=== PATIENT | male | born 1930 | race Caucasian/White ===

== ENCOUNTER 2017-05-20 22:29 | Emergency (ER) | payer MEDICARE ==
[2017-05-20] MEDS ORDERED: BUMEX 1 MG IV ONE (22:52)
--- NOTE | 2017-05-20 23:02 | ERPHSYRPT ---
- History of Present Illness Time Seen by Provider: 05/20/17 22:45 Source: patient Exam Limitations: clinical condition Patient Subjective Stated Complaint: swelling to arms, legs increasing since Sunday Triage Nursing Assessment: alert and oriented. states generalized swelling denies SOB/CP. noted bilateral leg swelling. bruise n oted to right lower leg and right thigh. denies injury. difficulty palpating pedal pulses due to swelling. _ Homans sign. has pacemaker. lungs clear bilatally. denies fever or cough.. + pulse x 4. Physician History: PATIENT WITH A HISTORY OF HYPERTENSION, PACEMAKER INSERTION, RECENT CARDIAC CATH, COMPLAINS OF CHRONIC BILATERAL LOWER EXTREMITY SWELLING, WHICH HAS INCREASED IN SEVERITY X 5 DAYS. DENIES DYSPNEA, CHEST PAIN, DIAPHORESIS AND PAIN IN EXTREMITIES. Method of Injury: other (DENIES INJURY OR TRAUMA) Occurred: last week Quality: constant Severity of Pain-Max: none Severity of Pain-Current: none Modifying Factors: Improves With: nothing Associated Symptoms: other (SWELLING IN LEGS) Allergies/Adverse Reactions: No Known Drug Allergies Allergy (Verified 08/07/14 13:25) Home Medications: Docusate Sodium 100 mg [Colace 100 MG] 200 mg PO DAILY 12/11/12 [History] Furosemide 40 mg [Lasix 40 MG] 80 mg PO DAILY 12/11/12 [History] Levothyroxine Sodium 50 Mcg [Synthroid 50 Mcg] 50 mcg PO DAILY 12/11/12 [ History] Metoprolol Tartrate 25 mg [Lopressor 25MG Tab] 25 mg PO BID 12/11/12 [ History] Multivitamins,Therapeutic Tab* [Theragran Multivitamin] 1 tab PO DAILY [History] Simvastatin 20Mg [Zocor 20Mg] 20 mg PO DAILY 12/11/12 [History] Tamsulosin HCl 0.4 mg [Flomax 0.4 MG] 0.4 mg PO DAILY 12/11/12 [History] Warfarin Sodium 3 mg [Coumadin 3 MG] 3 mg PO HS 04/16/13 [History] Hx Tetanus, Diphtheria Vaccination/Date Given: (unknown) Hx Influenza Vaccination/Date Given: Yes (2013) Hx Pneumococcal Vaccination/Date Given: (unknown) - Review of Systems Constitutional: No Fever, No Chills Eyes: No Symptoms Ears, Nose, & Throat: No Symptoms Respiratory: No Symptoms, No Cough, No Dyspnea Cardiac: No Symptoms, No Chest Pain, No Edema, No Syncope Abdominal/Gastrointestinal: No Symptoms, No Abdominal Pain, No Nausea, No Vomiting, No Diarrhea Genitourinary Symptoms: No Symptoms, No Dysuria Musculoskeletal: Other (SWELLING LEGS), No Back Pain, No Neck Pain Skin: No Rash Neurological: No Symptoms, No Dizziness, No Focal Weakness, No Sensory Changes Psychological: No Symptoms Endocrine: No Symptoms All Other Systems: Reviewed and Negative - Past Medical History Pertinent Past Medical History: Yes Neurological History: No Pertinent History ENT History: Cataracts Cardiac History: Arrhythmia Respiratory History: No Pertinent History Endocrine Medical History: No Pertinent History Musculoskeletal History: No Pertinent History GI Medical History: Gallbladder Disease History: No Pertinent History Psycho-Social History: No Pertinent History Male Reproductive Disorders: No Pertinent History Other Medical History: Pacemaker in 2010. - Past Surgical History Past Surgical History: Yes Neuro Surgical History: No Pertinent History Cardiac: Pacemaker Respiratory: No Pertinent History Gastrointestinal: No Pertinent History Genitourinary: No Pertinent History Musculoskeletal: No Pertinent History Male Surgical History: Vasectomy - Social History Smoking Status: Never smoker How long have you smoked: 60 YEARS Exposure to second hand smoke: No Drug Use: none Patient Lives Alone: No - Nursing Vital Signs Nursing Vital Signs: Initial Vital Signs Temperature 97.8 F 05/20/17 22:34 Pulse Rate 71 05/20/17 22:34 Respiratory Rate 20 05/20/17 22:34 Blood Pressure 144/65 05/20/17 22:34 O2 Sat by Pulse Oximetry 97 05/20/17 22:34 Pain Scale Pain Intensity 0 - Physical Exam General Appearance: alert Eyes, Ears, Nose, Throat Exam: moist mucous membranes Neck Exam: non-tender, supple Cardiovascular/Respiratory Exam: chest non-tender, normal breath sounds, regular rate/rhythm, no respiratory distress Gastrointestinal/Abdominal Exam: non-tender, soft Back Exam: normal inspection, No vertebral tenderness Legs Exam: bilateral leg: swelling (2+ PITTING EDEMA, NO CALF OR AUGUSTE TENDERNESS, BILATERAL PEDIS PULSES 2+) Foot Exam: bilateral foot: other (BILATERAL +1 EDEMA, PEDIS PULSES 2+) DTR - Lower Extremities Exam: knee (R): 2+, knee (L): 2+, ankle (R): 2+, ankle ( L): 2+ Neuro/Tendon Exam: normal sensation, normal motor functions Mental Status Exam: alert, oriented x 3, cooperative Skin Exam: normal color, warm, dry SpO2 Interpretation: normal SpO2: 97 Oxygen Delivery: Room Air - Course EKG Interpreted by Me: RATE, Sinus Rhythm, Other (ATRIAL VENTRICULAR PACEMAKER) - Radiology Ultrasound Exam Venous Lower Extremity Ultrasound: discussed w/radiologist (NO EVIDENCE OF DVT) Ordered Tests: Active Orders 24 hr Category Date Time Status Rope Walker STAT Care 05/20/17 22:51 Active EKG-ER Only STAT Care 05/20/17 22:50 Active Saline Lock STAT Care 05/20/17 22:52 Active CHEST 1 VIEW (PORTABLE) Stat Exams 05/20/17 22:51 Taken VENOUS BILATERAL EXTREMITY [US] Stat Exams 05/20/17 Ordered CBC W DIFF Stat Lab 05/20/17 23:45 Completed CMP Stat Lab 05/20/17 23:45 Completed NT PRO BNP Stat Lab 05/20/17 23:45 Completed PROTIME WITH INR Stat Lab 05/20/17 23:45 Completed TROPONIN Q3H Lab 05/20/17 23:45 Completed TROPONIN Q3H Lab 05/21/17 02:00 Ordered TROPONIN Q3H Lab 05/21/17 05:00 Ordered TROPONIN Q3H Lab 05/21/17 08:00 Ordered TROPONIN Q3H Lab 05/21/17 11:00 Ordered UA Stat Lab 05/20/17 22:55 Uncollected Medication Summary Discontinued Medications Generic Name Dose Route Start Last Admin Trade Name Rmq PRN Reason Stop Dose Admin Bumetanide 1 mg 05/20/17 22:52 05/20/17 23:45 Bumex 1 Mg IV 05/20/17 22:53 1 mg STAT ONE Administration Bumetanide Confirm 05/20/17 23:23 Bumex 1 Mg Administered 05/20/17 23:24 Dose 1 mg .ROUTE .STK-MED ONE Lab/Rad Data: Laboratory Result Diagrams 05/20/17 23:45 05/20/17 23:45 Laboratory Results 05/20/17 05/20/17 05/20/17 Range/Units 23:45 23:45 23:45 WBC (4.0-10.5) K/mm3 RBC (4.1-5.6) M/mm3 Hgb (12.5-18.0) gm/dl Hct (42-50) % MCV (78-100) fl MCH (26-32) pg MCHC (32-36) g/dl RDW (11.5-14.0) % Plt Count (150-450) K/mm3 MPV (6-9.5) fl Gran % (36.0-66.0) % Lymphocytes % (24.0-44.0) % Monocytes % (0.0-12.0) % Eosinophils % (0.00-5.0) % Basophils % (0.0-0.4) % Basophils # (0-0.4) INR 1.44 (0.8-3.0) Sodium 141 (136-145) mEq/L Potassium 3.7 (3.5-5.1) mEq/L Chloride 104 (98-107) mEq/L Carbon Dioxide 28.6 (21-32) mEq/L Anion Gap 12.0 (5-15) MEQ/L BUN 18 (9-20) mg/dL Creatinine 1.27 (0.55-1.30) mg/dl Estimated GFR 57 ML/MIN Glucose 127 H (70-110) MG/DL Calcium 9.3 (8.5-10.1) mg/dL Total Bilirubin 0.60 (0.2-1.0) mg/dL AST 23 (15-37) U/L ALT 19 (12-78) U/L Alkaline Phosphatase 79 (46-116) U/L Troponin I < 0.017 (0.000-0.056) ng/ml NT-Pro-B Natriuret Pep 506 H (0-450) pg/ml Serum Total Protein 7.4 (6.4-8.2) gm/dL Albumin 3.9 (3.4-5.0) g/dL 05/20/17 Range/Units 23:45 WBC 7.6 (4.0-10.5) K/mm3 RBC 4.18 (4.1-5.6) M/mm3 Hgb 11.2 L (12.5-18.0) gm/dl Hct 35.5 L (42-50) % MCV 84.9 (78-100) fl MCH 26.7 (26-32) pg MCHC 31.5 L (32-36) g/dl RDW 16.0 H (11.5-14.0) % Plt Count 167 (150-450) K/mm3 MPV 10.5 H (6-9.5) fl Gran % 77.6 H (36.0-66.0) % Lymphocytes % 10.9 L (24.0-44.0) % Monocytes % 10.0 (0.0-12.0) % Eosinophils % 1.2 (0.00-5.0) % Basophils % 0.3 (0.0-0.4) % Basophils # 0.02 (0-0.4) INR (0.8-3.0) Sodium (136-145) mEq/L Potassium (3.5-5.1) mEq/L Chloride (98-107) mEq/L Carbon Dioxide (21-32) mEq/L Anion Gap (5-15) MEQ/L BUN (9-20) mg/dL Creatinine (0.55-1.30) mg/dl Estimated GFR ML/MIN Glucose (70-110) MG/DL Calcium (8.5-10.1) mg/dL Total Bilirubin (0.2-1.0) mg/dL AST (15-37) U/L ALT (12-78) U/L Alkaline Phosphatase (46-116) U/L Troponin I (0.000-0.056) ng/ml NT-Pro-B Natriuret Pep (0-450) pg/ml Serum Total Protein (6.4-8.2) gm/dL Albumin (3.4-5.0) g/dL - Progress Progress Note: 05/20/17 23:02 SALINE LOCK ESTABLISHED BUMEX 1MG IV - Departure Time of Disposition: 00:55 Departure Disposition: Home Clinical Impression: DEPENDENT EDEMA LOWER EXTREMITIES Condition: Stable Critical Care Time: No Referrals: ANISH NGUYEN [Primary Care Provider] - Additional Instructions: CONTINUE ALL CURRENT MEDICATIONS. ELEVATE FEET ABOVE WAIST WHILE SLEEPING. OBTAIN ISAC HOSE STOCKINGS. FOLLOWUP WITH YOUR PRIMARY CARE PROVIDER THIS WEEK SCHEDULED.
[2017-05-20] MEDS ORDERED: BUMEX 1 MG ONE (23:23)
[2017-05-20 23:51] LABS: BASOPHIL % 0.3 % (0.0-0.4); Basophil (Absolute #) 0.02 (0-0.4); Eosinophil % 1.2 % (0.00-5.0); Eosinophil (Absolute #) 0.09 (0-0.5); Granulocytes % 77.6 % (36.0-66.0); Hematocrit 35.5 % (42-50); Hemoglobin 11.2 gm/dl (12.5-18.0); Lymphocyte (Absolute #) 0.83 (1.0-4.6); Lymphocytes % 10.9 % (24.0-44.0); Mean Cell Volume 84.9 fl (78-100); Mean Corpuscular Hgb Concent. 31.5 g/dl (32-36); Mean Platelet Volume 10.5 fl (6-9.5); Monocyte (Absolute #) 0.76 (0.0-1.3); Platelet Count 167 K/mm3 (150-450); Red Blood Count 4.18 M/mm3 (4.1-5.6); White Blood Count 7.6 K/mm3 (4.0-10.5)
[2017-05-20 23:54] LABS: Mean Corpuscular Hemoglobin 26.7 pg (26-32)
[2017-05-21 00:14] LABS: INR 1.44 (0.8-3.0)
[2017-05-21 00:32] LABS: ALBUMIN 3.9 g/dL (3.4-5.0); BILIRUBIN,TOTAL 0.6 mg/dL (0.2-1.0); Calcium 9.3 mg/dL (8.5-10.1); Carbon Dioxide 28.6 mEq/L (21-32); Creatinine 1 1.27 mg/dl (0.55-1.30); Potassium 3.7 mEq/L (3.5-5.1); Total Protein 7.4 gm/dL (6.4-8.2)
[2017-05-21 01:26] VITALS: BP 138/74; PULSE 70; O2SAT 98
--- NOTE | 2017-05-21 08:37 | XRAY ---
Indication: Extremity edema. Comparison: August 07, 2014. Portable chest unchanged again with chronic lung markings, calcified granulomas, cardiomegaly, osteopenia, and left-sided dual-lead pacemaker. No new/acute cardiopulmonary abnormalities.
--- NOTE | 2017-05-21 08:40 | XRAY ---
Indication: Bilateral lower extremity swelling. Two-dimensional sonogram and color Doppler imaging of the major venous vessels of the left and right leg was performed. Comparison: None No thrombus seen in the examined deep venous vessels of the left and right leg including greater saphenous veins. Veins demonstrate normal compressibility. Venous waveforms are normal with and without augmentation. Impression: Left and right legs negative for DVT. Comment: Preliminary report was given.
== END 2017-05-21 01:42 | disposition home or self-care (01) ==
LOC: ED 22:29
DX: R60.0 Localized edema (principal); Z79.899 Other long term (current) drug therapy; M79.89 Other specified soft tissue disorders
CPT/HCPCS: 36415; 71045; 80053; 83880; 84484; 85025; 85610; 93005; 93041; 93970; 96374; 99284; 99285

== ENCOUNTER 2017-11-27 15:30 | Emergency (ER) | payer MEDICARE ==
--- NOTE | 2017-11-27 16:22 | ERPHSYRPT ---
- History of Present Illness Time Seen by Provider: 11/27/17 16:08 Source: patient Exam Limitations: no limitations Patient Subjective Stated Complaint: Patient states he hurt his left leg yesterday and putting weight on it hurts. Triage Nursing Assessment: Patient ambulating into ER slowly. Patient complains of right lowere extremity pain. No visible bruising or swelling noted. Patient stated he twisted his right lower extremity while getting into a car yesterday 11/26/17. Patient states his pain is 3/10 when bearing weight to right leg. Physician History: 87-year-old white male arrives with complaint of pain in his right posterior medial leg symptoms since yesterday states he injured it getting out of a car. He states he has pain whenever he places weight on his right leg. Past medical history includes cardiac pacemaker, high blood pressure, arrhythmia , gallbladder disease, cataracts Past surgical history includes pacemaker and vasectomy Timing/Duration: yesterday Severity: moderate Modifying Factors: Improves With: other (pain worse with standing) Associated Symptoms: No nausea, No vomiting, No abdominal pain, No shortness of breath, No heartburn, No diaphoresis, No cough, No chills, No chest pain, No fever, No headaches, No loss of appetite, No malaise, No rash, No syncope, No seizure, No weakness Allergies/Adverse Reactions: No Known Drug Allergies Allergy (Verified 11/27/17 15:52) Home Medications: Docusate Sodium 100 mg [Colace 100 MG] 200 mg PO DAILY 12/11/12 [History] Furosemide 40 mg [Lasix 40 MG] 80 mg PO DAILY 12/11/12 [History] Levothyroxine Sodium 50 Mcg [Synthroid 50 Mcg] 50 mcg PO DAILY 12/11/12 [ History] Metoprolol Tartrate 25 mg [Lopressor 25MG Tab] 25 mg PO BID 12/11/12 [ History] Multivitamins,Therapeutic Tab* [Theragran Multivitamin] 1 tab PO DAILY [History] Simvastatin 20Mg [Zocor 20Mg] 20 mg PO DAILY 12/11/12 [History] Tamsulosin HCl 0.4 mg [Flomax 0.4 MG] 0.4 mg PO DAILY 12/11/12 [History] Warfarin Sodium 3 mg [Coumadin 3 MG] 3 mg PO HS 04/16/13 [History] Hx Tetanus, Diphtheria Vaccination/Date Given: Yes Hx Influenza Vaccination/Date Given: Yes Hx Pneumococcal Vaccination/Date Given: Yes Immunizations Up to Date: Yes - Review of Systems Constitutional: No Fever, No Chills Eyes: No Symptoms Ears, Nose, & Throat: No Symptoms Respiratory: No Cough, No Dyspnea Cardiac: No Chest Pain, No Edema, No Syncope Abdominal/Gastrointestinal: No Abdominal Pain, No Nausea, No Vomiting, No Diarrhea Genitourinary Symptoms: No Dysuria Musculoskeletal: Other (right leg pain) Skin: No Rash Neurological: No Dizziness, No Focal Weakness, No Sensory Changes Psychological: No Symptoms Endocrine: No Symptoms All Other Systems: Reviewed and Negative - Past Medical History Pertinent Past Medical History: Yes Neurological History: No Pertinent History ENT History: Cataracts Cardiac History: Arrhythmia Respiratory History: No Pertinent History Endocrine Medical History: No Pertinent History Musculoskeletal History: No Pertinent History GI Medical History: Gallbladder Disease History: No Pertinent History Psycho-Social History: No Pertinent History Male Reproductive Disorders: No Pertinent History Other Medical History: Pacemaker in 2010. - Past Surgical History Past Surgical History: Yes Neuro Surgical History: No Pertinent History Cardiac: Pacemaker Respiratory: No Pertinent History Gastrointestinal: No Pertinent History Genitourinary: No Pertinent History Musculoskeletal: No Pertinent History Male Surgical History: Vasectomy - Social History Smoking Status: Former smoker How long have you smoked: 20 years Exposure to second hand smoke: Yes Drug Use: none Patient Lives Alone: Yes - Nursing Vital Signs Nursing Vital Signs: Initial Vital Signs Temperature 98.7 F 11/27/17 15:40 Pulse Rate 71 11/27/17 15:40 Respiratory Rate 18 11/27/17 15:40 Blood Pressure 134/81 11/27/17 15:40 O2 Sat by Pulse Oximetry 98 11/27/17 15:40 Pain Scale Pain Intensity 3 - Physical Exam General Appearance: mild distress Eye Exam: PERRL/EOMI, eyes nml inspection Ears, Nose, Throat Exam: normal ENT inspection, TMs normal, pharynx normal, moist mucous membranes Neck Exam: normal inspection, non-tender, supple, full range of motion Respiratory Exam: normal breath sounds, lungs clear, No respiratory distress Cardiovascular Exam: regular rate/rhythm, normal heart sounds, normal peripheral pulses Gastrointestinal/Abdomen Exam: soft, normal bowel sounds, No tenderness, No mass Back Exam: normal inspection, normal range of motion, No CVA tenderness, No vertebral tenderness Extremity Exam: other (patient's right leg with mild edema, tenderness posterior mediallywith palpation. chronic skin changes) Neurologic Exam: alert, oriented x 3, cooperative, machine sander II-XII nml as tested, normal mood/affect, nml cerebellar function, nml station & gait, sensation nml, No motor deficits Skin Exam: other (chronic changes distal legs) SpO2 Interpretation: normal (98%) SpO2: 98 Oxygen Delivery: Room Air - Course Nursing assessment & vital signs reviewed: Yes - Radiology Exams Right Lower Leg X-ray Interpretation: Interpreted by me, Negative, No Fracture, No Subluxation - Radiology Ultrasound Exam Right Venous Lower Extremity Ultrasound: Other (VENOUS Doppler right lower extremity: small superficial thromboembolism right posterior leg, cystic area right groin.) Ordered Tests: Active Orders 24 hr Category Date Time Status IV Insertion STAT Care 11/27/17 16:15 Active LOWER LEG Stat Exams 11/27/17 16:15 Taken VENOUS UNILAT/LIMITED EXTREMIT [US] Stat Exams 11/27/17 16:43 Taken CBC W DIFF Stat Lab 11/27/17 17:02 Completed CMP Stat Lab 11/27/17 07:00 Completed D-DIMER QUANTITATION Stat Lab 11/27/17 07:00 Completed PROTIME WITH INR Stat Lab 11/27/17 07:00 Completed PTT Stat Lab 11/27/17 07:00 Completed Lab/Rad Data: Laboratory Result Diagrams 11/27/17 17:02 11/27/17 07:00 Laboratory Results 11/27/17 11/27/17 11/27/17 Range/Units 17:02 07:00 07:00 WBC 5.9 (4.0-10.5) K/mm3 RBC 4.15 (4.1-5.6) M/mm3 Hgb 12.5 (12.5-18.0) gm/dl Hct 37.5 L (42-50) % MCV 90.4 (78-100) fl MCH 30.1 (26-32) pg MCHC 33.3 (32-36) g/dl RDW 14.2 H (11.5-14.0) % Plt Count 150 (150-450) K/mm3 MPV 11.1 H (6-9.5) fl Gran % 68.8 H (36.0-66.0) % Eos # (Auto) 0.08 (0-0.5) Absolute Lymphs (auto) 1.08 (1.0-4.6) Absolute Monos (auto) 0.66 (0.0-1.3) Lymphocytes % 18.4 L (24.0-44.0) % Monocytes % 11.2 (0.0-12.0) % Eosinophils % 1.4 (0.00-5.0) % Basophils % 0.2 (0.0-0.4) % Absolute Granulocytes 4.05 (1.4-6.9) Basophils # 0.01 (0-0.4) PT 16.1 H (8.83-12.87) SECONDS INR 1.38 (0.8-3.0) APTT 44.9 H (24.1-36.1) SECONDS D-Dimer 461 (215-500) ng/mL Sodium 141 (137-145) mmol/L Potassium 4.3 (3.5-5.1) mmol/L Chloride 103 (98-107) mmol/L Carbon Dioxide 27 (22-30) mmol/L Anion Gap 15.0 (5-15) MEQ/L BUN 24 H (9-20) mg/dL Creatinine 1.15 (0.66-1.25) mg/dL Estimated GFR > 60.0 ML/MIN Glucose 123 H (74-106) mg/dL Calcium 10.1 (8.4-10.2) mg/dL Total Bilirubin 0.60 (0.2-1.3) mg/dL AST 23 (17-59) U/L ALT 15 (0-50) U/L Alkaline Phosphatase 68 (38-126) U/L Serum Total Protein 7.6 (6.3-8.2) g/dL Albumin 4.5 (3.5-5.0) g/dL - Progress Progress: improved Progress Note: 11/27/17 16:20 87-year-old white male arrives with complaint of pain in his right posterior medial leg symptoms since yesterday he states he twisted his leg getting out of the car. On examination patient is markedly tender in the right posterior medial leg overlying the calf there is moderate amount of edema to the area. He states he has pain with the weightbearing on this leg. Will go ahead and a right tibia/fibula x-ray but also feel like need to obtain venous Doppler CBC CMP PT PTT d-dimer to rule out DVT. Patient does not want pain medications at this time. 11/27/17 18:07 Patient's d-dimer within normal limits labs essentially normal x-ray right lower extremity no fracture. Patient's venous Doppler show a small superficial thrombus in the right posterior leg. Will go ahead and try to arrange for the patient to get a walker place patient on pain medication. I am reluctant to place this patient on nonsteroidals secondary to his age and risk for GI bleed. - Departure Time of Disposition: 18:08 Departure Disposition: Home Clinical Impression: Right leg pain Muscle strain of right lower leg Qualifiers: Encounter type: initial encounter Qualified Code(s): S86.911A - Strain of unspecified muscle(s) and tendon(s) at lower leg level, right leg, initial encounter Leg vein thromboembolism, superficial Qualifiers: Laterality: right Qualified Code(s): I82.811 - Embolism and thrombosis of superficial veins of right lower extremity Condition: Fair Critical Care Time: No Referrals: DOCTOR,NO FAMILY [Primary Care Provider] - Additional Instructions: Return home. Cold packs right leg 24-48 hours. H[place] 5/325 one orally every 4-6 hours as needed for pain. Use a walker as needed. Follow-up with your family doctor. Return for acute distress or for severe symptoms. Prescriptions: Hydrocodone/Acetaminophen [H[place] 5-325 Tablet] 1 tab PO Q4-6HPRN PRN #10 tablet MDD 6 tablets PRN Reason: Pain
[2017-11-27 17:16] LABS: BASOPHIL % 0.2 % (0.0-0.4); Basophil (Absolute #) 0.01 (0-0.4); Eosinophil % 1.4 % (0.00-5.0); Eosinophil (Absolute #) 0.08 (0-0.5); Granulocyte Absolute (ANC) 4.05 (1.4-6.9); Granulocytes % 68.8 % (36.0-66.0); Hematocrit 37.5 % (42-50); Hemoglobin 12.5 gm/dl (12.5-18.0); Lymphocyte (Absolute #) 1.08 (1.0-4.6); Lymphocytes % 18.4 % (24.0-44.0); Mean Cell Volume 90.4 fl (78-100); Mean Corpuscular Hemoglobin 30.1 pg (26-32); Mean Corpuscular Hgb Concent. 33.3 g/dl (32-36); Mean Platelet Volume 11.1 fl (6-9.5); Monocyte (Absolute #) 0.66 (0.0-1.3); Monocytes % 11.2 % (0.0-12.0); Platelet Count 150 K/mm3 (150-450); Red Blood Count 4.15 M/mm3 (4.1-5.6); Red Cell Distribution Width 14.2 % (11.5-14.0); White Blood Count 5.9 K/mm3 (4.0-10.5)
[2017-11-27 17:22] LABS: INR 1.38 (0.8-3.0)
[2017-11-27 17:25] LABS: PTT 44.9 SECONDS (24.1-36.1)
[2017-11-27 17:26] LABS: ALBUMIN 4.5 g/dL (3.5-5.0); ALKALINE PHOSPHATASE 68 U/L (38-126); BLOOD UREA NITROGEN 24 mg/dL (9-20); CHLORIDE 103 mmol/L (98-107); Calcium 10.1 mg/dL (8.4-10.2); Carbon Dioxide 27 mmol/L (22-30); Creatinine 1 1.15 mg/dL (0.66-1.25); Glucose 123 mg/dL (74-106); Potassium 4.3 mmol/L (3.5-5.1); SGOT/AST 23 U/L (17-59); SGPT/ALT 15 U/L (0-50); SODIUM 141 mmol/L (137-145); Total Protein 7.6 g/dL (6.3-8.2)
[2017-11-27 18:21] VITALS: BP 122/56; PULSE 70; O2SAT 97
--- NOTE | 2017-11-27 21:45 | XRAY ---
Indication: Right calf pain. 2-dimensional sonogram and color Doppler imaging of the major venous vessels of the right leg was performed. Comparison: May 20, 2017. There is now small focus of subcutaneous thrombophlebitis at the level of the mid calf. No thrombus seen elsewhere in the deep venous vessels of the right leg including greater saphenous vein. Patent veins demonstrate normal compressibility. Venous waveforms are normal with and without augmentation. Right groin region now demonstrates a 5.2 x 3.0 x 3.6 cm cystic mass with low-level internal echoes and no abnormal color flow. Finding may represent hematoma/seroma or lymphocele. Impression: 1. Small focus superficial thrombophlebitis midcalf. 2. Right groin cystic mass as detailed. Rule out hematoma/seroma versus lymphocele. Comment: Preliminary report was given.
--- NOTE | 2017-11-27 21:49 | XRAY ---
Indication: Posterior pain following twisting injury. Comparison: None 2 views of the right lower leg demonstrates mild ankle soft tissue swelling and tiny posterior heel spur. No other bony, articular, or soft tissue abnormalities.
== END 2017-11-27 18:25 | disposition home or self-care (01) ==
LOC: ED 15:30
DX: S86.911A Strain of unspecified muscle(s) and tendon(s) at lower leg level, right leg, initial encounter (principal); I82.811 Embolism and thrombosis of superficial veins of right lower extremity; X50.0XXA Overexertion from strenuous movement or load, initial encounter; M79.661 Pain in right lower leg; I10 Essential (primary) hypertension; Z95.0 Presence of cardiac pacemaker; Z79.899 Other long term (current) drug therapy; Z79.01 Long term (current) use of anticoagulants
CPT/HCPCS: 36000; 36415; 73590; 80053; 85025; 85379; 85610; 85730; 93971; 99284

== ENCOUNTER 2018-09-09 19:25 | Emergency (ER) | payer MEDICARE ==
[2018-09-09] MEDS ORDERED: Vancomycin 1GM/ Ns 250ML*** 1 GM/250 ML IVPB IV ONE (20:28)
[2018-09-09] MEDS ORDERED: Sodium Chloride 0.9% 1000 ML 1,000 ML IV SCH (20:30)
[2018-09-09 20:32] LABS: BASOPHIL % 0.1 % (0.0-0.4); Basophil (Absolute #) 0.01 (0-0.4); Eosinophil % 1.4 % (0.00-5.0); Eosinophil (Absolute #) 0.12 (0-0.5); Granulocyte Absolute (ANC) 6.58 (1.4-6.9); Granulocytes % 77.5 % (36.0-66.0); Hemoglobin 11.2 gm/dl (12.5-18.0); Lymphocyte (Absolute #) 0.97 (1.0-4.6); Lymphocytes % 11.4 % (24.0-44.0); Mean Cell Volume 89.9 fl (78-100); Mean Corpuscular Hemoglobin 29.6 pg (26-32); Mean Corpuscular Hgb Concent. 32.9 g/dl (32-36); Mean Platelet Volume 10.9 fl (6-9.5); Monocyte (Absolute #) 0.82 (0.0-1.3); Monocytes % 9.6 % (0.0-12.0); Platelet Count 153 K/mm3 (150-450); Red Blood Count 3.78 M/mm3 (4.1-5.6); Red Cell Distribution Width 14.9 % (11.5-14.0); White Blood Count 8.5 K/mm3 (4.0-10.5)
[2018-09-09 20:37] LABS: INR 1.37 (0.8-3.0)
[2018-09-09 20:42] LABS: ALBUMIN 3.9 g/dL (3.5-5.0); ALKALINE PHOSPHATASE 83 U/L (38-126); ANION GAP 15.2 MEQ/L (5-15); BLOOD UREA NITROGEN 21 mg/dL (9-20); CHLORIDE 99 mmol/L (98-107); Calcium 9.7 mg/dL (8.4-10.2); Carbon Dioxide 26 mmol/L (22-30); Creatinine 1 1.15 mg/dL (0.66-1.25); Glucose 123 mg/dL (74-106); Potassium 4.2 mmol/L (3.5-5.1); SGOT/AST 27 U/L (17-59); SGPT/ALT 19 U/L (0-50); SODIUM 136 mmol/L (137-145); Total Protein 6.7 g/dL (6.3-8.2)
[2018-09-09] MEDS ORDERED: Vancomycin 1GM/ Ns 250ML*** 250 ML IV ONE (21:24)
[2018-09-09] MEDS ORDERED: Sodium Chloride 0.9% 1000 ML 1,000 ML ONE (21:24)
--- NOTE | 2018-09-09 23:57 | ERPHSYRPT ---
- History of Present Illness Time Seen by Provider: 09/09/18 20:05 Source: patient Exam Limitations: clinical condition Patient Subjective Stated Complaint: pt states he has had swelling in his leg chronically. the last 2 days has had an open area on his lt lower leg and redness. denies pain Triage Nursing Assessment: pt alert and oriented, asnwers questions approp. pt ambulatory with slow gait noted. respirations nonlabored with lungs cta. +2 pitting edema noted to bilat lower ext. pedal pulse wnl bilat. redness noted to aterior lt lower leg with open area approx 5x4 cm. small amt of serosang drainage noted. 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 HE COMPLAINS OF AN ULCERATION OVER LEFT LOWER AUGUSTE [place] 3-4 DAY WITH SURROUNDING REDNESS AND DRAINAGE. DENIES FEVER OR CHILLS. Method of Injury: other (DENIES INJURY) Occurred: last week Quality: other (DENIES PAIN ) Severity of Pain-Current: none Lower Extremities Pain: leg: left Modifying Factors: Improves With: nothing Associated Symptoms: none Allergies/Adverse Reactions: No Known Drug Allergies Allergy (Verified 09/09/18 20:07) Home Medications: Docusate Sodium 100 mg [Colace 100 MG] 200 mg PO DAILY 12/11/12 [History] Furosemide 40 mg [Lasix 40 MG] 80 mg PO DAILY 12/11/12 [History] Levothyroxine Sodium 50 Mcg [Synthroid 50 Mcg] 50 mcg PO DAILY 12/11/12 [ History] Metoprolol Tartrate 25 mg [Lopressor 25MG Tab] 25 mg PO BID 12/11/12 [ History] Multivitamins,Therapeutic Tab* [Theragran Multivitamin] 1 tab PO DAILY [History] Simvastatin 20Mg [Zocor 20Mg] 20 mg PO DAILY 12/11/12 [History] Tamsulosin HCl 0.4 mg [Flomax 0.4 MG] 0.4 mg PO DAILY 12/11/12 [History] Warfarin Sodium 3 mg [Coumadin 3 MG] 3 mg PO HS 04/16/13 [History] Hx Tetanus, Diphtheria Vaccination/Date Given: Yes Hx Influenza Vaccination/Date Given: Yes Hx Pneumococcal Vaccination/Date Given: Yes Immunizations Up to Date: Yes - Review of Systems Constitutional: No Fever, No Chills Eyes: No Symptoms Ears, Nose, & Throat: No Symptoms Respiratory: No Cough, No Dyspnea Cardiac: No Chest Pain, No Edema, No Syncope Abdominal/Gastrointestinal: No Abdominal Pain, No Nausea, No Vomiting, No Diarrhea Genitourinary Symptoms: No Dysuria Musculoskeletal: Other (LOWER LEFT LEG ULCERATION AND SWELLING), No Back Pain, No Neck Pain Skin: No Rash Neurological: No Dizziness, No Focal Weakness, No Sensory Changes Psychological: No Symptoms Endocrine: No Symptoms All Other Systems: Reviewed and Negative - Past Medical History Pertinent Past Medical History: Yes Neurological History: No Pertinent History ENT History: Cataracts Cardiac History: Arrhythmia Respiratory History: No Pertinent History Endocrine Medical History: No Pertinent History Musculoskeletal History: No Pertinent History GI Medical History: Gallbladder Disease History: No Pertinent History Psycho-Social History: No Pertinent History Male Reproductive Disorders: No Pertinent History Other Medical History: 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 - Past Surgical History Past Surgical History: Yes Neuro Surgical History: No Pertinent History Cardiac: Pacemaker Respiratory: No Pertinent History Gastrointestinal: No Pertinent History Genitourinary: No Pertinent History Musculoskeletal: No Pertinent History Male Surgical History: Vasectomy - Social History Smoking Status: Former smoker How long have you smoked: 20 years Exposure to second hand smoke: No Drug Use: none Patient Lives Alone: Yes - Nursing Vital Signs Nursing Vital Signs: Initial Vital Signs Temperature 98.2 F 09/09/18 19:50 Pulse Rate 70 09/09/18 19:50 Respiratory Rate 16 09/09/18 19:50 Blood Pressure 144/78 09/09/18 19:50 O2 Sat by Pulse Oximetry 100 09/09/18 19:50 Pain Scale Pain Intensity 0 - Physical Exam General Appearance: no apparent distress Eyes, Ears, Nose, Throat Exam: normal ENT inspection Neck Exam: normal inspection Cardiovascular/Respiratory Exam: chest non-tender Gastrointestinal/Abdominal Exam: non-tender, soft Back Exam: normal inspection Legs Exam: left leg: soft tissue tenderness, swelling (1+ PITTING EDEMA BILAT EXTEMITIES, THERE IS A 4CM X 6CM ULCERATION DISTAL 3RD AUGUSTE SURROUNDING SWELLING AND ERYTHEMA WITH WARMTH, MID CIRCUMFERENCE LEFT MID CALF 36CM, RIGHT MID CALF CIRCUMFERENCE 35CM) SpO2: 95 - Radiology Ultrasound Exam Venous Lower Extremity Ultrasound: discussed w/radiologist (NO EVIDENCE OF DVT LEFT EXTREMITY) Ordered Tests: Active Orders 24 hr Category Date Time Status IV Insertion STAT Care 09/09/18 20:26 Active VENOUS UNILAT/LIMITED EXTREMIT [US] Stat Exams 09/09/18 22:55 Taken BLOOD CULTURE Stat Lab 09/09/18 20:50 Received CBC W DIFF Stat Lab 09/09/18 20:25 Completed CMP Stat Lab 09/09/18 20:25 Completed CULTURE,WOUND Stat Lab 09/09/18 21:30 Received PROTIME WITH INR Stat Lab 09/09/18 20:25 Completed Medication Summary Generic Name Dose Route Start Last Admin Trade Name Freq PRN Reason Stop Dose Admin Sodium Chloride 1,000 mls @ 50 mls/hr 09/09/18 20:30 09/09/18 21:29 Sodium Chloride 0.9% 1000 Ml IV 10/09/18 20:29 50 mls/hr .Q20H FRANKI Administration Discontinued Medications Generic Name Dose Route Start Last Admin Trade Name Freq PRN Reason Stop Dose Admin Vancomycin HCl 1 gm in 250 mls @ 167 mls/hr 09/09/18 20:28 09/09/18 21:32 Vancomycin 1gm/ Ns 250ml IV 09/09/18 21:57 167 mls/hr STAT ONE Administration Vancomycin HCl Confirm 09/09/18 21:24 Vancomycin 1gm/ Ns 250ml Administered 09/09/18 21:25 Dose 250 mls @ ud IV .STK-MED ONE Lab/Rad Data: Laboratory Result Diagrams 09/09/18 20:25 09/09/18 20:25 Laboratory Results 09/09/18 09/09/18 09/09/18 Range/Units 20:25 20:25 20:25 WBC 8.5 (4.0-10.5) K/mm3 RBC 3.78 L (4.1-5.6) M/mm3 Hgb 11.2 L (12.5-18.0) gm/dl Hct 34.0 L (42-50) % MCV 89.9 (78-100) fl MCH 29.6 (26-32) pg MCHC 32.9 (32-36) g/dl RDW 14.9 H (11.5-14.0) % Plt Count 153 (150-450) K/mm3 MPV 10.9 H (6-9.5) fl Gran % 77.5 H (36.0-66.0) % Eos # (Auto) 0.12 (0-0.5) Absolute Lymphs (auto) 0.97 L (1.0-4.6) Absolute Monos (auto) 0.82 (0.0-1.3) Lymphocytes % 11.4 L (24.0-44.0) % Monocytes % 9.6 (0.0-12.0) % Eosinophils % 1.4 (0.00-5.0) % Basophils % 0.1 (0.0-0.4) % Absolute Granulocytes 6.58 (1.4-6.9) Basophils # 0.01 (0-0.4) PT 16.0 H (8.83-12.87) SECONDS INR 1.37 (0.8-3.0) Sodium 136 L (137-145) mmol/L Potassium 4.2 (3.5-5.1) mmol/L Chloride 99 (98-107) mmol/L Carbon Dioxide 26 (22-30) mmol/L Anion Gap 15.2 H (5-15) MEQ/L BUN 21 H (9-20) mg/dL Creatinine 1.15 (0.66-1.25) mg/dL Estimated GFR > 60.0 ML/MIN Glucose 123 H (74-106) mg/dL Calcium 9.7 (8.4-10.2) mg/dL Total Bilirubin 0.60 (0.2-1.3) mg/dL AST 27 (17-59) U/L ALT 19 (0-50) U/L Alkaline Phosphatase 83 (38-126) U/L Serum Total Protein 6.7 (6.3-8.2) g/dL Albumin 3.9 (3.5-5.0) g/dL - Progress Discussed with : Other (DISCUSSED WITH DR ANGELES AT [address] [facility]) - Departure Departure Disposition: Transfer Clinical Impression: CELLULITIS LEFT LOWER EXTREMITY Condition: Stable Critical Care Time: No Referrals: ANISH NGUYEN [Primary Care Provider] -
[2018-09-10 01:03] VITALS: BP 134/64; PULSE 96
[2018-09-10 01:19] VITALS: O2SAT 95
--- NOTE | 2018-09-10 08:36 | XRAY ---
Indication: Edema. Wound. Two-dimensional sonogram and color Doppler imaging of the major venous vessels of the left leg was performed. Comparison: May 20, 2017. Again no thrombus seen in the examined deep venous vessels of the left leg including greater saphenous vein. Veins demonstrate normal compressibility. Venous waveforms are normal with and without augmentation. Impression: Left leg again negative for DVT. Comment: Preliminary report was given.
== END 2018-09-10 01:35 | disposition short-term general hospital (02) ==
LOC: ED 19:25
DX: L03.116 Cellulitis of left lower limb (principal); I10 Essential (primary) hypertension; I87.8 Other specified disorders of veins; Z86.73 Personal history of transient ischemic attack (TIA), and cerebral infarction without residual deficits; I25.2 Old myocardial infarction; Z79.01 Long term (current) use of anticoagulants; Z79.899 Other long term (current) drug therapy
CPT/HCPCS: 36000; 36415; 80053; 85025; 85610; 87040; 87070; 87077; 87186; 93971; 96360; 96361; 96365; 99285; J3370

== ENCOUNTER 2019-02-06 11:34 | Inpatient (IN) | payer MEDICARE ==
[2019-02-06] MEDS ORDERED: Sodium Chloride 0.9% 1000 ML 1,000 ML ONE (13:26)
[2019-02-06 13:46] LABS: Hematocrit 28.3 % (42-50); Hemoglobin 9.2 gm/dl (12.5-18.0); Mean Cell Volume 80.2 fl (78-100); Mean Corpuscular Hgb Concent. 32.5 g/dl (32-36); Mean Platelet Volume 10.6 fl (6-9.5); Platelet Count 184 K/mm3 (150-450); Red Blood Count 3.53 M/mm3 (4.1-5.6); Red Cell Distribution Width 16.6 % (11.5-14.0); White Blood Count 6.6 K/mm3 (4.0-10.5)
[2019-02-06 14:01] LABS: BILIRUBIN,TOTAL 1.4 mg/dL (0.2-1.3)
[2019-02-06 14:09] LABS: ALBUMIN 3.8 g/dL (3.5-5.0); ANION GAP 18.3 MEQ/L (5-15); Calcium 11.6 mg/dL (8.4-10.2); Creatinine 1 1.3 mg/dL (0.66-1.25); Total Protein 7.7 g/dL (6.3-8.2)
--- NOTE | 2019-02-06 16:28 | XRAY ---
Indication: Short of breath. CHF. Comparison: May 20, 2017. PA/lateral chest again hyperinflated and clear with incidental calcified granulomas. Heart remains enlarged with left-sided dual lead pacemaker. Bony thorax intact again with mild osteopenia and degenerative changes. Impression: Stable nonacute chest with chronic features.
[2019-02-06] MEDS: Sodium Chloride 0.9% 1000 ML 1,000 ML IV SCH (16:31)
[2019-02-06] MEDS: Lasix 40 MG PO SCH (16:31)
--- NOTE | 2019-02-06 17:49 | PCM.HP.ADD ---
Addendum to History & Physical - History & Physical Addendum Addendum to History & Physical: This certifies that the History & Physical in the electronic chart reflects the current health status of the patient. If there are changes in the H&P these changes/exceptions are listed as follows.
[2019-02-06] MEDS: THERAGRAN MULTIVITAMIN PO SCH (22:11)
[2019-02-06] MEDS: Lopressor 25MG Tab PO SCH (22:12)
[2019-02-06] MEDS: ZOCOR 20MG PO SCH (22:12)
[2019-02-07 04:47] LABS: Appearance CLEAR (CLEAR); Bilirubin NEGATIVE (NEGATIVE); Blood NEGATIVE Ery/ul (0-5); Glucose NEGATIVE (NEGATIVE); Ketones NEGATIVE (NEGATIVE); Leukocyte Esterase NEGATIVE (NEGATIVE); Nitrite NEGATIVE (NEGATIVE); Protein,Urine Dip NEGATIVE (Negative); Specific Gravity 1.011 (1.005-1.025); Urobilinogen 2 mg/dL (0-1)
[2019-02-07 04:53] LABS: Bacteria NONE SEEN /HPF (NEGATIVE); WBC NONE SEEN /HPF (0-5)
[2019-02-07] MEDS: REMERON 30 MG PO SCH (05:53)
[2019-02-07] MEDS: SYNTHROID 50 MCG PO SCH (05:53)
[2019-02-07] MEDS ORDERED: Zofran 4 MG/2 ML VIAL IV PRN (08:46)
[2019-02-07 09:34] LABS: Hemoglobin 9.4 gm/dl (12.5-18.0); Mean Cell Volume 79.9 fl (78-100); Mean Corpuscular Hgb Concent. 32.4 g/dl (32-36); Mean Platelet Volume 11.9 fl (6-9.5); Platelet Count 231 K/mm3 (150-450); Red Blood Count 3.63 M/mm3 (4.1-5.6); Red Cell Distribution Width 16.7 % (11.5-14.0); White Blood Count 8.3 K/mm3 (4.0-10.5)
[2019-02-07 09:36] LABS: Mean Corpuscular Hemoglobin 25.8 pg (26-32)
[2019-02-07 09:39] LABS: ALBUMIN 3.5 g/dL (3.5-5.0); ALKALINE PHOSPHATASE 603 U/L (38-126); ANION GAP 19.8 MEQ/L (5-15); BLOOD UREA NITROGEN 31 mg/dL (9-20); CHLORIDE 101 mmol/L (98-107); Calcium 11.3 mg/dL (8.4-10.2); Carbon Dioxide 24 mmol/L (22-30); Creatinine 1 1.15 mg/dL (0.66-1.25); Glucose 117 mg/dL (74-106); Potassium 4.4 mmol/L (3.5-5.1); SGOT/AST 153 U/L (17-59); SGPT/ALT 58 U/L (0-50); SODIUM 140 mmol/L (137-145); Total Protein 7.1 g/dL (6.3-8.2)
[2019-02-07] MEDS: BUMEX 1 MG PO SCH (09:49)
[2019-02-07] MEDS: Zestril 5 MG PO SCH (09:49)
[2019-02-07] MEDS: Lasix 40 MG PO SCH ×2 (09:49→18:11)
[2019-02-07] MEDS: Lopressor 25MG Tab PO SCH ×2 (09:49→21:39)
[2019-02-07] MEDS: Klor Con 10 MEQ PO SCH (09:49)
[2019-02-07] MEDS: Flomax 0.4 MG PO SCH (09:49)
[2019-02-07] MEDS ORDERED: POTASSIUM CHLORIDE 40 MEQ PO SCH (10:00)
--- NOTE | 2019-02-07 11:48 | XRAY ---
Indication: Nausea and vomiting. Multiple contiguous axial images obtained through the abdomen and pelvis without contrast as ordered. Comparison: July 16, 2012. Lung bases demonstrate minimal bibasilar atelectasis/scarring. No infiltrate or effusion. Stable cardiomegaly and small hiatal hernia. Noncontrasted stomach and bowel loops appear nonobstructed. Normal appendix. Again mild scattered colonic diverticulosis without diverticulitis. No free fluid/air. Liver demonstrates new ill-defined hypodensities, largest in the right lobe measuring 5.0 x 5.3 cm concerning for malignancy. Liver also demonstrates new micronodular margins as seen in cirrhosis. Spleen is again enlarged today measuring 13.4 cm in greatest axial dimension. Again multiple gallstones with new gallbladder wall thickening/stranding possibly cholecystitis. Stable left renal exophytic cyst and enlarged/nodular prostate gland. Remaining pancreas, adrenal glands, kidneys, ureters, and bladder appear unremarkable for noncontrast exam. Again mild scattered aortoiliac calcifications without AAA. Osseous structures again demonstrate osteopenia, moderate multilevel degenerative spondylosis with minimal grade 1 L4 spondylolisthesis, and mild levorotoscoliosis. Stable small fatty bilateral inguinal hernias. Impression: 1. New multifocal ill-defined hepatic hypodense lesions worrisome for malignancy. Suspect new cirrhosis without ascites. 2. Again multiple gallstones with new gallbladder wall thickening/stranding. Rule out cholecystitis. Gallbladder sonogram may yield further information. 3. Stable cardiomegaly, small hiatal hernia, splenomegaly, colonic diverticulosis, left renal cyst, enlarged/nodular prostate gland, bilateral fatty inguinal hernias, and chronic bony findings. CT DI 17.74
--- NOTE | 2019-02-07 13:24 | PCM.NOTE ---
Date and Time: 02/07/19 1321 Subjective Assessment: still very weak, CT abdomen showed liver mass, gallstones with cholecystitis - Review of Systems Constitutional: No Fever, No Chills Eyes: No Symptoms Ears, Nose, & Throat: No Symptoms Respiratory: No Cough, No Short Of Breath Cardiac: No Chest Pain, No Edema, No Syncope Abdominal/Gastrointestinal: Abdominal Pain, No Nausea, No Vomiting, No Diarrhea Genitourinary Symptoms: No Dysuria Musculoskeletal: No Back Pain, No Neck Pain Skin: No Rash Neurological: No Dizziness, No Focal Weakness, No Sensory Changes Psychological: No Symptoms Endocrine: No Symptoms Hematologic/Lymphatic: No Symptoms Immunological/Allergic: No Symptoms Objective Exam General Appearance: no apparent distress, alert Neurologic Exam: alert, oriented x 3, cooperative, normal mood/affect, nml cerebellar function, sensation nml, No motor deficits Skin Exam: normal color, warm, dry Wound Assessment: Skin/Wound Assessment Wound/Incision Assessment Start: 02/06/19 13: 01 Text: Status: Active Freq: Q6H Protocol: Document 02/07/19 08:00 BE (Rec: 02/07/19 10:44 BE [id number]) Wound/Incision Assessment Posterior Sacrum Wound Assessment Shift Assessment Wound Type Pressure Ulcer Wound Stage Stage II Dressing Status Dry & Intact Drainage Amount None Eye Exam: PERRL, EOMI, eyes nml inspection Ears, Nose, Throat Exam: normal ENT inspection, pharynx normal, moist mucous membranes Neck Exam: normal inspection, non-tender, supple, full range of motion Respiratory Exam: normal breath sounds, lungs clear, No respiratory distress Cardiovascular Exam: regular rate/rhythm, normal heart sounds Gastrointestinal/Abdomen Exam: soft, No tenderness, No mass Extremity Exam: normal inspection, normal range of motion Back Exam: normal inspection, normal range of motion, No CVA tenderness, No vertebral tenderness Male Genitalia Exam: deferred Rectal Exam: deferred OBJECTIVE DATA Vital Signs: Vital Signs - 24 hr Temp Pulse Resp BP Pulse Ox 02/07/19 12:00 98.6 F 70 22 124/58 98 02/07/19 08:00 98.6 F 69 18 166/72 97 02/07/19 07:40 97 02/07/19 03:47 97.9 F 69 16 113/56 98 02/07/19 00:00 98.1 F 70 17 100/55 98 10/10/19 19:58 98.1 F 70 18 111/53 94 L 02/06/19 18:55 94 L 02/06/19 18:51 94 L 02/06/19 16:00 97.8 F 70 18 122/60 98 02/06/19 13:51 98 Pain Assessment - Last Documented Pain Intensity 0 Pain Scale Used 0-10 Pain Scale Intake and Output: Intake & Output 02/05/19 02/06/19 02/07/19 02/08/19 11:59 11:59 11:59 11:59 Intake Total 968 240 Output Total 975 300 Balance -7 60 Weight 69.7 kg Lab Results: Lab Results-Last 24 Hours 02/06/19 02/06/19 02/06/19 Range/Units 12:48 12:48 Unknown WBC 6.6 (4.0-10.5) K/mm3 RBC 3.53 L (4.1-5.6) M/mm3 Hgb 9.2 L (12.5-18.0) gm/dl Hct 28.3 L (42-50) % MCV 80.2 (78-100) fl MCH 26.0 (26-32) pg MCHC 32.5 (32-36) g/dl RDW 16.6 H (11.5-14.0) % Plt Count 184 (150-450) K/mm3 MPV 10.6 H (6-9.5) fl Sodium 137 (137-145) mmol/L Potassium 5.0 (3.5-5.1) mmol/L Chloride 98 (98-107) mmol/L Carbon Dioxide 26 (22-30) mmol/L Anion Gap 18.3 H (5-15) MEQ/L BUN 41 H (9-20) mg/dL Creatinine 1.30 H (0.66-1.25) mg/dL Estimated GFR 55.6 ML/MIN Glucose 118 H (74-106) mg/dL Calcium 11.6 H (8.4-10.2) mg/dL Total Bilirubin 1.40 H (0.2-1.3) mg/dL AST 119 H (17-59) U/L ALT 63 H (0-50) U/L Alkaline Phosphatase 636 H (38-126) U/L Troponin I < 0.012 (0.000-0.034) ng/mL NT-Pro-B Natriuret Pep 1020 (0-1800) pg/mL Serum Total Protein 7.7 (6.3-8.2) g/dL Albumin 3.8 (3.5-5.0) g/dL Urine Color (YELLOW) Urine Appearance (CLEAR) Urine pH (5-6) Ur Specific [place] (1.005-1.025) Urine Protein (Negative) Urine Ketones (NEGATIVE) Urine Blood (0-5) Efraín/ul Urine Nitrite (NEGATIVE) Urine Bilirubin (NEGATIVE) Urine Urobilinogen (0-1) mg/dL Ur Leukocyte Esterase (NEGATIVE) Urine WBC (Auto) (0-5) /HPF Urine RBC (Auto) (0-2) /HPF U Epithel Cells (Auto) (FEW) /HPF Urine Bacteria (Auto) (NEGATIVE) /HPF Urine Culture Reflexed (NO) Urine Glucose (NEGATIVE) mg/dL 02/07/19 02/07/19 02/07/19 Range/Units 03:48 05:00 05:00 WBC 8.3 (4.0-10.5) K/mm3 RBC 3.63 L (4.1-5.6) M/mm3 Hgb 9.4 L (12.5-18.0) gm/dl Hct 29.0 L (42-50) % MCV 79.9 (78-100) fl MCH 25.8 L (26-32) pg MCHC 32.4 (32-36) g/dl RDW 16.7 H (11.5-14.0) % Plt Count 231 (150-450) K/mm3 MPV 11.9 H (6-9.5) fl Sodium 140 (137-145) mmol/L Potassium 4.4 (3.5-5.1) mmol/L Chloride 101 (98-107) mmol/L Carbon Dioxide 24 (22-30) mmol/L Anion Gap 19.8 H (5-15) MEQ/L BUN 31 H (9-20) mg/dL Creatinine 1.15 (0.66-1.25) mg/dL Estimated GFR > 60.0 ML/MIN Glucose 117 H (74-106) mg/dL Calcium 11.3 H (8.4-10.2) mg/dL Total Bilirubin 1.40 H (0.2-1.3) mg/dL AST 153 H (17-59) U/L ALT 58 H (0-50) U/L Alkaline Phosphatase 603 H (38-126) U/L Troponin I (0.000-0.034) ng/mL NT-Pro-B Natriuret Pep (0-1800) pg/mL Serum Total Protein 7.1 (6.3-8.2) g/dL Albumin 3.5 (3.5-5.0) g/dL Urine Color YELLOW (YELLOW) Urine Appearance CLEAR (CLEAR) Urine pH 6.0 (5-6) Ur Specific [place] 1.011 (1.005-1.025) Urine Protein NEGATIVE (Negative) Urine Ketones NEGATIVE (NEGATIVE) Urine Blood NEGATIVE (0-5) Efraín/ul Urine Nitrite NEGATIVE (NEGATIVE) Urine Bilirubin NEGATIVE (NEGATIVE) Urine Urobilinogen 2 (0-1) mg/dL Ur Leukocyte Esterase NEGATIVE (NEGATIVE) Urine WBC (Auto) NONE SEEN (0-5) /HPF Urine RBC (Auto) NONE (0-2) /HPF U Epithel Cells (Auto) NONE (FEW) /HPF Urine Bacteria (Auto) NONE SEEN (NEGATIVE) /HPF Urine Culture Reflexed NO (NO) Urine Glucose NEGATIVE (NEGATIVE) mg/dL Radiology Exams: Radiology Procedures Category Date Time Status ABDOMEN AND PELVIS W/0 CONTRAS [CT] Urgent Exams 02/07/19 11:01 Completed CHEST 2 VIEWS (PA AND LAT) Urgent Exams 02/06/19 15:45 Completed ECHO W/2D AND DOPPLER [US] Routine Exams 02/06/19 13:55 Taken Multi-Disciplinary Progress Notes: Multi-Disciplinary Progress Notes 02/07/19 09:36 Case Management Note by Anabel Ramírez DISCUSSION WITH KWAN HOOPER'S POA, REGARDING NEEDS AT DISCHARGE. SANDIE REPORTS THAT PT IS NORMALLY INDEPENDENT. CONFUSED AT TIMES. REPORTS THAT WHEN HE IS OUT OF HIS ENVIRONMENT, IT WORSENS. REPORTS THAT THEY HAVE BEEN DISCUSSING REHAB STAY AT [facility] VS ASSISTED LIVING. DID DISCUSS WITH JESSIE HOOPER , THAT PT WAS NOT MEETING INPT CRITERIA AT THIS TIME, BUT THAT DR. MANN WOULD HAVE UP TO 48 HOURS TO MAKE THE DECISION FOR INPATIENT. SANDIE VERBALIZED UNDERSTANDING AND ABLE TO REPEAT INFORMATION BACK. DISCUSSED PRIVATE PAYMENT WITH SANDIE IN THE EVENT PT WILL MEET CRITERIA TO USE MEDICARE SKILLED DAYS. ALSO, DISCUSSED [facility]. SANDIE REPORTS THAT THEY WILL DISCUSS AND DECIDE. Initialized on 02/07/19 09:36 - END OF NOTE Assessment/Plan (1) Cholecystitis Current Visit: Yes Status: Acute Assessment & Plan: will get surgery consult Code(s): K81.9 - CHOLECYSTITIS, UNSPECIFIED (2) Liver mass Current Visit: Yes Status: Acute Code(s): R16.0 - HEPATOMEGALY, NOT ELSEWHERE CLASSIFIED
--- NOTE | 2019-02-07 15:09 | XRAY ---
Indication: Abnormal gallbladder on same-day CT. Two-dimensional gallbladder sonogram performed. Comparison: None Pancreas not well seen due to overlying bowel gas. Gallbladder normally distended with numerous small intraluminal gallstones. Abnormal gallbladder wall thickening measuring 4.4 mm but no pericholecystic fluid. Common bile duct measures 5.7 mm. No intrahepatic biliary distention. Visualized portions of liver demonstrates at least 2 foci of complex heterogeneous echogenicities, largest in the right lobe measuring 5.4 x 4.4 x 5.0 cm. No ascites. Right kidney measures 10.0 x 4.8 x 4.7 cm and appears sonographically normal. Impression: 1. Cholelithiasis with wall thickening but no pericholecystic fluid or abnormal biliary distention. Rule out chronic cholecystitis. 2. Heterogeneous liver masses corresponding to same day CT finding worrisome for malignancy. 3. Pancreas not seen.
[2019-02-07 16:27] LABS: INR 1.54 (0.8-3.0); PROTIME 17.5 SECONDS (8.83-12.87)
[2019-02-07] MEDS ORDERED: Golytely Solution 4000 ML PO ONE (18:15)
[2019-02-07] MEDS: THERAGRAN MULTIVITAMIN PO SCH (21:39)
[2019-02-07] MEDS: ZOCOR 20MG PO SCH (21:39)
--- NOTE | 2019-02-07 23:50 | XRAY ---
Indication: Nausea and vomiting. Liver lesions. Cirrhosis. Gallstones. Possible metastasis. Multiple contiguous axial images obtained through the chest without contrast as ordered. Lungs are hyperinflated with minimal bilateral dependent atelectasis. No suspicious pulmonary mass, infiltrate, consolidation, or effusion. Heart is enlarged with left-sided dual-lead pacemaker. There are mild scattered vascular calcifications including coronary arteries and aorta. No pathologic mediastinal lymphadenopathy. Small hiatal hernia. Bony thorax intact with mild osteopenia. No suspicious bony lesions. CT abdomen/pelvis reported separately. Impression: Hyperinflated lungs, cardiomegaly, and small hiatal hernia. Remaining CT chest without contrast exam is negative. CTDI 20.00
--- NOTE | 2019-02-07 23:53 | XRAY ---
Indication: Liver lesions, cirrhosis, nausea, vomiting, and gallstones. Multiple contiguous axial images obtained through the abdomen and pelvis using 80 cc Isovue 370 contrast only. Comparison: Noncontrast exam performed earlier in the day. CT chest reported separately. Liver again appears cirrhotic. There are again multiple hypodense liver lesions now demonstrating heterogeneous enhancement. Again largest is in the right lobe. Findings again worrisome for metastasis. No free fluid/air. Normal visceral enhancement and renal excretion. Stable splenomegaly, cholelithiasis with gallbladder wall thickening/stranding, left renal exophytic cyst, enlarged/nodular prostate gland, and small fatty bilateral inguinal hernias. Noncontrasted stomach and bowel loops again nonobstructed with scattered colonic diverticulosis. Remaining pancreas, adrenal glands, right kidney, ureters, and bladder appear unremarkable. No pathologic retroperitoneal lymphadenopathy. Impression: 1. Again multiple hypodense heterogeneous enhancing liver lesions worrisome for metastasis. 2. Stable cirrhotic liver, cholelithiasis with wall thickening/stranding, splenomegaly, colonic diverticulosis, left renal cyst, enlarged/nodular prostate gland, and bilateral fatty inguinal hernias. CTDI is 20.00
[2019-02-08] MEDS: Sodium Chloride 0.9% 1000 ML 1,000 ML IV SCH ×2 (02:03→15:19)
[2019-02-08] MEDS ORDERED: CITROMA 296 ML PO ONE (06:00)
[2019-02-08] MEDS: SYNTHROID 50 MCG PO SCH (06:46)
[2019-02-08] MEDS: REMERON 30 MG PO SCH (06:52)
--- NOTE | 2019-02-08 07:05 | PCM.NOTE ---
Date and Time: 02/08/19702 Subjective Assessment: has minor fall in AM today, no significant injury, going for colonoscopy and EGD today - Review of Systems Constitutional: Weakness, No Fever, No Chills Eyes: No Symptoms Ears, Nose, & Throat: No Symptoms Respiratory: No Cough, No Short Of Breath Cardiac: No Chest Pain, No Edema, No Syncope Abdominal/Gastrointestinal: No Abdominal Pain, No Nausea, No Vomiting, No Diarrhea Genitourinary Symptoms: No Dysuria Musculoskeletal: No Back Pain, No Neck Pain Skin: No Rash Neurological: No Dizziness, No Focal Weakness, No Sensory Changes Psychological: No Symptoms Endocrine: No Symptoms Hematologic/Lymphatic: No Symptoms Immunological/Allergic: No Symptoms Objective Exam General Appearance: mild distress, alert Neurologic Exam: alert, oriented x 3, cooperative, normal mood/affect, nml cerebellar function, sensation nml, No motor deficits Skin Exam: normal color, warm, dry Wound Assessment: Skin/Wound Assessment Wound/Incision Assessment Start: 02/06/19 13: 01 Text: Status: Active Freq: Q6H Protocol: Document 02/08/19 02:00 EG (Rec: 02/08/19 03:22 EG [id number]) Wound/Incision Assessment Posterior Sacrum Wound Assessment Shift Assessment Wound Type Pressure Ulcer Wound Stage Stage II Dressing Status Dry & Intact Drainage Amount None Wound Photo Photo Taken No Eye Exam: PERRL, EOMI, eyes nml inspection Ears, Nose, Throat Exam: normal ENT inspection, pharynx normal, moist mucous membranes Neck Exam: normal inspection, non-tender, supple, full range of motion Respiratory Exam: normal breath sounds, lungs clear, No respiratory distress Cardiovascular Exam: regular rate/rhythm, normal heart sounds Gastrointestinal/Abdomen Exam: soft, No tenderness, No mass Extremity Exam: normal inspection, normal range of motion Back Exam: normal inspection, normal range of motion, No CVA tenderness, No vertebral tenderness Male Genitalia Exam: deferred Rectal Exam: deferred OBJECTIVE DATA Vital Signs: Vital Signs - 24 hr Temp Pulse Resp BP Pulse Ox 02/08/19 04:00 97.7 F 70 19 145/70 98 02/08/19 00:19 97.7 F 69 18 133/61 97 02/07/19 23:35 97 02/07/19 20:00 97.6 F 72 17 146/65 98 02/07/19 16:00 98.2 F 74 20 122/64 97 02/07/19 12:00 98.6 F 70 22 124/58 98 02/07/19 08:00 98.6 F 69 18 166/72 97 02/07/19 07:40 97 Pain Assessment - Last Documented Pain Intensity 0 Pain Scale Used 0-10 Pain Scale Intake and Output: Intake & Output 02/05/19 02/06/19 02/07/19 02/08/19 11:59 11:59 11:59 11:59 Intake Total 968 2750 Output Total 975 530 Balance -7 2220 Weight 69.7 kg Lab Results: Lab Results-Last 24 Hours 02/07/19 02/07/19 02/07/19 Range/Units 05:00 05:00 16:00 WBC 8.3 (4.0-10.5) K/mm3 RBC 3.63 L (4.1-5.6) M/mm3 Hgb 9.4 L (12.5-18.0) gm/dl Hct 29.0 L (42-50) % MCV 79.9 (78-100) fl MCH 25.8 L (26-32) pg MCHC 32.4 (32-36) g/dl RDW 16.7 H (11.5-14.0) % Plt Count 231 (150-450) K/mm3 MPV 11.9 H (6-9.5) fl PT 17.5 H (8.83-12.87) SECONDS INR 1.54 (0.8-3.0) Sodium 140 (137-145) mmol/L Potassium 4.4 (3.5-5.1) mmol/L Chloride 101 (98-107) mmol/L Carbon Dioxide 24 (22-30) mmol/L Anion Gap 19.8 H (5-15) MEQ/L BUN 31 H (9-20) mg/dL Creatinine 1.15 (0.66-1.25) mg/dL Estimated GFR > 60.0 ML/MIN Glucose 117 H (74-106) mg/dL Calcium 11.3 H (8.4-10.2) mg/dL Total Bilirubin 1.40 H (0.2-1.3) mg/dL AST 153 H (17-59) U/L ALT 58 H (0-50) U/L Alkaline Phosphatase 603 H (38-126) U/L Serum Total Protein 7.1 (6.3-8.2) g/dL Albumin 3.5 (3.5-5.0) g/dL Radiology Exams: Radiology Procedures Category Date Time Status ABDOMEN AND PELVIS W CONTRAST [CT] Urgent Exams 02/07/19 14:36 Completed ABDOMEN AND PELVIS W/0 CONTRAS [CT] Urgent Exams 02/07/19 11:01 Completed CHEST 2 VIEWS (PA AND LAT) Urgent Exams 02/06/19 15:45 Completed CHEST WITHOUT CONTRAST [CT] Routine Exams 02/07/19 14:36 Completed ECHO W/2D AND DOPPLER [US] Routine Exams 02/06/19 13:55 Taken GALLBLADDER [US] Routine Exams 02/07/19 14:48 Completed Multi-Disciplinary Progress Notes: Multi-Disciplinary Progress Notes 02/07/19 09:36 Case Management Note by Anabel Ramírez DISCUSSION WITH [facility], REGARDING NEEDS AT DISCHARGE. SANDIE REPORTS THAT PT IS NORMALLY INDEPENDENT. CONFUSED AT TIMES. REPORTS THAT WHEN HE IS OUT OF HIS ENVIRONMENT, IT WORSENS. REPORTS THAT THEY HAVE BEEN DISCUSSING REHAB STAY AT [facility] VS ASSISTED LIVING. DID DISCUSS WITH JESSIE HOOPER , THAT PT WAS NOT MEETING INPT CRITERIA AT THIS TIME, BUT THAT DR. MANN WOULD HAVE UP TO 48 HOURS TO MAKE THE DECISION FOR INPATIENT. SANDIE VERBALIZED UNDERSTANDING AND ABLE TO REPEAT INFORMATION BACK. DISCUSSED PRIVATE PAYMENT WITH SANDIE IN THE EVENT PT WILL MEET CRITERIA TO USE MEDICARE SKILLED DAYS. ALSO, DISCUSSED [facility]. SANDIE REPORTS THAT THEY WILL DISCUSS AND DECIDE. Initialized on 02/07/19 09:36 - END OF NOTE Assessment/Plan (1) Cholecystitis Current Visit: Yes Status: Acute Code(s): K81.9 - CHOLECYSTITIS, UNSPECIFIED (2) Liver mass Current Visit: Yes Status: Acute Assessment & Plan: going for colonoscopy, EGD Code(s): R16.0 - HEPATOMEGALY, NOT ELSEWHERE CLASSIFIED
[2019-02-08] MEDS ORDERED: Lactated Ringers 1,000 ML IV SCH (08:30)
[2019-02-08] MEDS: Klor Con 10 MEQ PO SCH (08:33)
[2019-02-08] MEDS: BUMEX 1 MG PO SCH (08:33)
[2019-02-08] MEDS: Flomax 0.4 MG PO SCH (08:33)
[2019-02-08] MEDS: Zestril 5 MG PO SCH (08:33)
[2019-02-08] MEDS: Lasix 40 MG PO SCH ×2 (08:33→17:38)
[2019-02-08] MEDS: Lopressor 25MG Tab PO SCH ×2 (08:33→23:26)
[2019-02-08] MEDS: ROCEPHIN 1 Gm-D5w 50 ml Bag** 1 G/50 ML IVPB IV SCH (10:49)
[2019-02-08] MEDS ORDERED: Ketamine HCl 50 MG/ML ONE (12:54)
[2019-02-08] MEDS ORDERED: DIPRIVAN 200 MG/20 ML IV ONE (12:54)
[2019-02-08] MEDS ORDERED: PHENYLEPHRINE HCL ONE (13:53)
[2019-02-08] MEDS: ZOCOR 20MG PO SCH (23:26)
[2019-02-08] MEDS: THERAGRAN MULTIVITAMIN PO SCH (23:26)
[2019-02-09] MEDS ORDERED: TORAdol 30 mg Injection IV PRN (02:18)
[2019-02-09] MEDS ORDERED: TORAdol 30 mg Injection ONE (02:26)
[2019-02-09] MEDS: REMERON 30 MG PO SCH (06:23)
[2019-02-09] MEDS: SYNTHROID 50 MCG PO SCH (06:24)
[2019-02-09 08:16] VITALS: BP 128/62; PULSE 71; O2SAT 96
--- NOTE | 2019-02-09 08:20 | PCM.DS ---
Discharge Summary Date of Admission: 02/07/19 12:00 Admitting Physician: ROLA MANN Consults: Consults on Case 02/07/19 13:49 Consult Surgery ROUTINE Primary Care Provider: ROLA MANN Allergies Allergies No Known Drug Allergies Allergy (Verified 09/09/18 20:07) Hospital Summary - Hospital Course Hospital Course: Chief Complaint Diagnosis CHOLELITHIASIS, ACUTE CHOLECYSTITIS, LIVER MALIGNANCY Allergies Allergy/AdvReac Type Severity Reaction Status Date / Time No Known Drug Allergies Allergy Verified 09/09/18 20:07 Vital Signs (Last 24 hours) Temp Pulse Resp BP Pulse Ox 02/09/19 07:00 97.2 F 89 26 H 111/73 91 L 02/09/19 03:00 98.2 F 70 15 108/55 96 02/08/19 23:20 96 02/08/19 23:00 98.4 F 69 20 101/81 95 02/08/19 19:00 98.2 F 69 16 123/58 96 02/08/19 17:58 96 02/08/19 15:46 99.2 F 71 18 119/58 96 02/08/19 15:15 70 18 118/59 95 02/08/19 14:45 97.0 F 134/63 02/08/19 14:30 97.8 F 66 18 129/63 97 02/08/19 12:00 97.0 F 69 18 134/63 97 02/08/19 08:16 97.6 F 68 18 128/60 98 Home Medications Medication Instructions Recorded Confirmed Last Taken Type Bumetanide 1 mg PO DAILY 02/06/19 02/06/19 02/06/19 History 1mg Furosemide 40 mg [Lasix 40 40 mg PO BID 02/06/19 02/06/19 02/06/19 History MG] 40mg Lisinopril 5 mg PO DAILY 02/06/19 02/06/19 02/06/19 History 5mg Mirtazapine 15 mg PO 0600 02/06/19 02/06/19 02/06/19 History 15mg Potassium Chloride [Klor-Con M20] 40 meq PO DAILY 02/06/19 02/06/19 02/06/19 History 40meq Current Medications Generic Name Dose Route Start Last Admin Trade Name Freq PRN Reason Stop Dose Admin Bumetanide 1 mg 02/07/19 10:00 02/08/19 08:33 Bumex 1 Mg PO 03/09/19 09:59 1 mg DAILY FRANKI Administration Furosemide 40 mg 02/06/19 17:00 02/08/19 17:38 Lasix 40 Mg PO 03/08/19 16:59 40 mg BID DIURETIC FRANKI Administration Sodium Chloride 1,000 mls @ 30 mls/hr 02/06/19 13:00 02/08/19 15:19 Sodium Chloride 0.9% 1000 Ml IV 03/08/19 12:59 30 mls/hr .Q24H FRANKI Administration Lactated Ringer's 1,000 mls @ 50 mls/hr 02/08/19 08:30 02/08/19 08:33 Lactated Ringers IV 03/10/19 08:29 50 mls/hr .Q20H FRANKI Administration Ceftriaxone Sodium/Dextrose 1 g in 50 mls @ 100 mls/hr 02/08/19 12:00 10:49 Rocephin 1 Gm-D5w 50 Ml Bag IV 03/10/19 11:59 100 mls/hr Q24H10 FRANKI Administration Levothyroxine Sodium 50 mcg 02/07/19 06:00 02/09/19 06:24 Synthroid 50 Mcg PO 03/09/19 05:59 50 mcg 0600 FRANKI Administration Lisinopril 5 mg 02/07/19 10:00 02/08/19 08:33 Zestril 5 Mg PO 03/09/19 09:59 5 mg DAILY FRANKI Administration Metoprolol Tartrate 25 mg 02/06/19 22:00 02/08/19 23:26 Lopressor 25mg Tab PO 03/08/19 21:59 25 mg BID FRANKI Administration Mirtazapine 15 mg 02/07/19 06:00 02/09/19 06:23 Remeron 30 Mg PO 03/09/19 05:59 15 mg 0600 FRANKI Administration Multivitamins Therapeutic 1 tab 02/06/19 22:00 02/08/19 23:26 Theragran Multivitamin PO 03/08/19 21:59 1 tab HS FRANKI Administration Ondansetron HCl 4 mg 02/07/19 08:46 02/07/19 09:07 Zofran 4 Mg/2 Ml Vial IV 03/09/19 08:45 4 mg Q6H PRN PRN Administration NAUSEA/VOMITING Potassium Chloride 40 meq 02/07/19 10:00 02/08/19 08:33 Klor Con 10 Meq PO 03/09/19 09:59 40 meq DAILY FRANKI Administration Simvastatin 20 mg 02/06/19 22:00 02/08/19 23:26 Zocor 20mg PO 03/08/19 21:59 20 mg HS FRANKI Administration Tamsulosin HCl 0.4 mg 02/07/19 10:00 02/08/19 08:33 Flomax 0.4 Mg PO 03/09/19 09:59 0.4 mg DAILY FRANKI Administration Discontinued Medications Generic Name Dose Route Start Last Admin Trade Name Freq PRN Reason Stop Dose Admin Sodium Chloride Confirm 02/06/19 13:26 Sodium Chloride 0.9% 1000 Ml Administered 02/06/19 13:27 Dose 1,000 mls @ ud .ROUTE .STK-MED ONE Ketamine HCl Confirm 02/08/19 12:54 Ketamine Hcl 50 Mg/Ml Administered 02/08/19 12:55 Dose 10 mg .ROUTE .STK-MED ONE Ketorolac Tromethamine 15 mg 02/09/19 02:18 02/09/19 02:27 Toradol 30 Mg Injection IV 02/14/19 02:17 15 mg Q6H PRN PRN Administration PAIN Ketorolac Tromethamine Confirm 02/09/19 02:26 Toradol 30 Mg Injection Administered 02/09/19 02:27 Dose 30 mg .ROUTE .STK-MED ONE Magnesium Citrate 296 ml 02/08/19 06:00 02/08/19 06:02 Citroma 296 Ml PO 02/08/19 06:01 296 ml 1XONLY ONE Administration Phenylephrine HCl Confirm 02/08/19 13:53 Phenylephrine Hcl Administered 02/08/19 13:54 Dose 10 mg .ROUTE .STK-MED ONE Polyethylene Glycol/Electrolytes 4,000 ml 02/07/19 18:15 02/07/19 18:30 Golytely Solution 4000 Ml PO 02/07/19 18:16 4,000 ml ONCE@1400 ONE Administration Propofol Confirm 02/08/19 12:54 Diprivan 200 Mg/20 Ml Administered 02/08/19 12:55 Dose 200 mg IV .STK-MED ONE Intake & Output (Last 24 hours) 02/06/19 02/07/19 02/08/19 02/09/19 11:59 11:59 11:59 11:59 Intake Total 968 5150 891 Output Total 975 530 Balance -7 4620 891 Weight 69.7 kg 69.7 kg Microbiology Results (Last 24 hours) 02/06/19 13:20 Blood Blood Culture Gram Stain - Pending 02/06/19 13:20 Blood Blood Culture - Preliminary NO GROWTH TO DATE Orders (Last 24 hours) Category Date Time Status Nursing [Miscellaneous Nursing Order] ROUTINE Care 02/08/19 14:37 Active Soft Diet Diet 02/08/19 Dinner Active Discharge Routine Discharge 02/09/19 Ordered Surgical Pathology Routine Lab 02/08/19 13:41 Received Ceftriaxone 1 GM/50 ML PREMIX* [ROCEPHIN 1 Gm-D5w 50 ml Med 02/08/19 12:00 Active Bag] 1 g in 50 ml IV Q24H10 KETOROLAC trometh 30 mg Inj [TORAdol 30 mg Injection Med 02/09/19 02:18 Discontinued ] 15 mg IV Q6H PRN PRN KETOROLAC trometh 30 mg Inj [TORAdol 30 mg Injection Med 02/09/19 02:26 Discontinued ] 30 mg .ROUTE .STK-MED ONE Ketamine HCl 50 mg/ml [Ketamine HCl 50 MG/ML] Med 02/08/19 12:54 Discontinued 10 mg .ROUTE .STK-MED ONE Phenylephrine 10 mg/ml [Phenylephrine HCl] Med 02/08/19 13:53 Discontinued 10 mg .ROUTE .STK-MED ONE Propofol 200 mg/20 ml [Diprivan 200 mg/20 ml] Med 02/08/19 12:54 Discontinued 200 mg IV .STK-MED ONE Ringers Solution,Lactated [Lactated Ringers] 1,000 ml Med 02/08/19 08:30 Active IV 50 mls/hr Patient Care Notes (Last 24 hours) 02/09/19 07:54 Nursing Note by Kaleb Mercedes Talked with Manny from [facility] at this time. A off premise service representative from [facility] will be here today at 1300 to talk with family. Initialized on 02/09/19 07:54 - END OF NOTE 02/09/19 07:46 Nursing Note by Kaleb Mercedes Dr rounded. Patient to be discharged today. I contacted [facility] answering service and left message. Initialized on 02/09/19 07:46 - END OF NOTE 02/08/19 17:07 Nursing Note by Haley Maria Spoke via phone with Manny with [facility] regarding pt's evaluation; stated she might make contact with pt's Cara ROMAN, and possibly do his evaluation after pt is home. Initialized on 02/08/19 17:07 - END OF NOTE 02/08/19 16:25 Nursing Note by Haley Maria Called [facility] answering service regarding evaluation for Hospice with plans to be discharged 02/09/2019 afternoon. Initialized on 02/08/19 16:25 - END OF NOTE 02/08/19 11:30 Nursing Note by Yadi Ariza Pt completed drinking all of the ordered bowel prep. Initialized on 02/08/19 11:30 - END OF NOTE 02/08/19 10:19 Nursing Note by Kaleb Mercedes Dr ordered rocephin 1 gm IV qday to be started today. 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 Family and patient have opted for comfort measures at home. plan to discharge patient home with hospice care for comfort measures - Vitals & Intake/Output Vital Signs: Vital Signs Temperature 97.2 F 02/09/19 07:00 Pulse Rate 89 02/09/19 07:00 Respiratory Rate 26 H 02/09/19 07:00 Blood Pressure 111/73 02/09/19 07:00 O2 Sat by Pulse Oximetry 91 L 02/09/19 07:00 Oxygen-Last Documented O2 Percentage 3 Liters = 32% Intake & Output: Intake & Output 02/06/19 02/07/19 02/08/19 02/09/19 11:59 11:59 11:59 11:59 Intake Total 968 5150 891 Output Total 975 530 Balance -7 4620 891 Weight 69.7 kg 69.7 kg - Lab Result Diagrams: 02/07/19 05:00 02/07/19 05:00 Micro Results-Entire Visit: Microbiology 02/06/19 13:20 Blood Culture - Preliminary Blood NO GROWTH TO DATE - Radiology Exams Ordered Rad Exams-Entire Visit: Radiology Procedures Category Date Time Status ABDOMEN AND PELVIS W CONTRAST [CT] Urgent Exams 02/07/19 14:36 Completed ABDOMEN AND PELVIS W/0 CONTRAS [CT] Urgent Exams 02/07/19 11:01 Completed CHEST WITHOUT CONTRAST [CT] Routine Exams 02/07/19 14:36 Completed GALLBLADDER [US] Routine Exams 02/07/19 14:48 Completed - Procedures and Test Procedures and Tests throughout Hospitalization: Therapy Orders & Screens 02/06/19 12:48 EKG ROUTINE Comment: Diagnosis: EXAC CHF, SOB 02/06/19 12:50 Oxygen Nasal Cannula 2 lpm Comment: Diagnosis: EXAC CHF, SOB Discharge Exam General Appearance: no apparent distress, alert Neurologic Exam: alert, oriented x 3, cooperative, normal mood/affect, nml cerebellar function, sensation nml, No motor deficits Eye Exam: PERRL, EOMI, eyes nml inspection Ears, Nose, Throat Exam: normal ENT inspection, pharynx normal, moist mucous membranes Neck Exam: normal inspection, non-tender, supple, full range of motion Respiratory Exam: normal breath sounds, lungs clear, No respiratory distress Cardiovascular Exam: regular rate/rhythm, normal heart sounds Gastrointestinal/Abdomen Exam: soft, No tenderness, No mass Male Genitalia Exam: deferred Rectal Exam: deferred Back Exam: normal inspection, normal range of motion, No CVA tenderness, No vertebral tenderness Extremity Exam: normal inspection, normal range of motion Skin Exam: normal color, warm, dry Wound Assessment: Skin/Wound Assessment Wound/Incision Assessment Start: 02/06/19 13: 01 Text: Status: Active Freq: Q6H Protocol: Document 02/09/19 03:00 EG (Rec: 02/09/19 04:48 EG [id number]) Wound/Incision Assessment Posterior Sacrum Wound Assessment Shift Assessment Wound Type Skin Tear Dressing Status Dry & Intact General Appearance Clean/Dry Reddened Surrounding Tissue Nutrioso Primary Dressing tegaderm Comment blood noted under dressing. tegaderm intact. Wound Photo Photo Taken No Final Diagnosis/Problem List - Final Discharge Diagnosis/Problem (1) Cholecystitis Current Visit: Yes Status: Acute Assessment & Plan: Patient is at high risk for surgery to cardiopulmonary risk factors as well as recent new finding od metastatic gastric adenocarcinoma. Code(s): K81.9 - CHOLECYSTITIS, UNSPECIFIED (2) Liver mass Current Visit: Yes Status: Acute Assessment & Plan: due to primary gastric adenocarcinoma. Code(s): R16.0 - HEPATOMEGALY, NOT ELSEWHERE CLASSIFIED (3) Gastric carcinoma Current Visit: Yes Status: Acute Code(s): C16.9 - MALIGNANT NEOPLASM OF STOMACH, UNSPECIFIED (4) Adenocarcinoma of gastric cardia Current Visit: Yes Status: Acute Priority: High Assessment & Plan: Patient has high operative mortality risk so patient and family have opted for hospice care Code(s): C16.0 - MALIGNANT NEOPLASM OF CARDIA (5) Metastasis from gastric cancer Current Visit: Yes Status: Acute Code(s): C79.9 - SECONDARY MALIGNANT NEOPLASM OF UNSPECIFIED SITE; C16.9 - MALIGNANT NEOPLASM OF STOMACH, UNSPECIFIED - Discharge Discharge Date: 02/09/19 Disposition: Hospice @ [facility] Condition: Stable Prescriptions: Continue Multivitamins,Therapeutic Tab* [Theragran Multivitamin] 1 tab PO HS Tamsulosin HCl 0.4 mg [Flomax 0.4 MG] 0.4 mg PO DAILY Levothyroxine Sodium 50 Mcg [Synthroid 50 Mcg] 50 mcg PO 0600 Simvastatin 20Mg [Zocor 20Mg] 20 mg PO HS Metoprolol Tartrate 25 mg [Lopressor 25MG Tab] 25 mg PO BID Lisinopril 5 mg PO DAILY Potassium Chloride [Klor-Con M20] 40 meq PO DAILY Mirtazapine 15 mg PO 0600 Bumetanide 1 mg PO DAILY Furosemide 40 mg [Lasix 40 MG] 40 mg PO BID Follow up with: ROLA MANN MD [Primary Care Provider] - 1 Week
[2019-02-09] MEDS: ROCEPHIN 1 Gm-D5w 50 ml Bag** 1 G/50 ML IVPB IV SCH (09:26)
[2019-02-09] MEDS: Lasix 40 MG PO SCH (09:27)
[2019-02-09] MEDS: Klor Con 10 MEQ PO SCH (09:27)
[2019-02-09] MEDS: BUMEX 1 MG PO SCH (09:27)
[2019-02-09] MEDS: Flomax 0.4 MG PO SCH (09:27)
[2019-02-09] MEDS: Zestril 5 MG PO SCH (09:28)
[2019-02-09] MEDS: Lopressor 25MG Tab PO SCH (09:28)
--- NOTE | 2019-02-10 08:41 | CONS ---
CONSULT DATE: 02/07/2019 The patient was seen for Dr. Fernando Santiago who is structural ironworker for our group this weekend. HISTORY: The patient is an 88 year-old gentleman who had some medical problems, had some weight loss of 13 pounds over the past two or three weeks. He apparently had an episode of vomiting. He denies any abdominal pain whatsoever. He is a little bit of a poor historian. History taken from the family at the bedside. His alkaline phosphatase was 603, ALT 59, AST 153, bilirubin 1.4. White count 8.3, hemoglobin 9.4. He had an initial scan of his abdomen show question of some hyperdense lesions in his liver and question whether he might have some cirrhotic changes. He had multiple gallstones, a little bit of gallbladder wall thickening but no pericholecystic fluid on ultrasound. He has a dual phase CT of the liver to further evaluate the liver lesions pending at this time. Again, he denied any abdominal pain. PAST SURGICAL HISTORY: He denied any prior abdominal surgeries. Cardiac pacemaker by Dr. Harrell in the past. PAST MEDICAL HISTORY: He did have a pacemaker in the past. He has hypertension, hypercholesterolemia, atrial fibrillation, hypothyroidism and benign prostatic hypertrophy in the past. 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 Unsure if he had a recent echo. He is followed by Dr. Harrell in [place]. HOME MEDICATIONS: Colcrys, benazepril, furosemide, metoprolol, Tamsulosin, levothyroxine, Simvastatin, Theragran Multivitamin, lisinopril, bumetanide, Flomax, Klor-Con. He had been on Coumadin in the past. The family thinks he stopped that a year or so ago. ALLERGIES: NKDA. FAMILY HISTORY: Negative in regards to this problem. SOCIAL HISTORY: No current smoking or alcohol abuse. Reported history of former smoker in the past. REVIEW OF SYSTEMS: Fourteen systems reviewed. No chest pain or palpitations. Otherwise pertinent for as noted above. He had some increased weakness recently. He has not been eating as much, did have an episode of emesis. He denies any abdominal pain currently. PHYSICAL EXAMINATION: GENERAL: A chronically ill gentleman in no acute distress. HEENT: Sclera nonicteric. NECK: No JVD. CHEST: Equal excursion, nonlabored breathing. CVS: Regular rate and rhythm. ABDOMEN: Soft, nontender. No rebound. No guarding. No peritoneal signs. EXTREMITIES: Trace edema. IMPRESSION: He had some weight loss. He had some nausea but no pain. He had some elevated liver test and elevated alkaline phosphatase. He had CT with question of some liver lesions. Dual phase CT for further evaluation to see if these appear to be metastases or whether more of a hemangioma or other lesions at this time is pending. He does have gallstones although he does not seem to be having acute cholecystitis. He has a normal white count and no pain over the gallbladder at this time. Pending his further liver work up, if it does show what seems to be metastases could consider EGD and colonoscopy to rule out upper or lower GI source. Otherwise might consider CT-guided or ultrasound-guided biopsy at some point. Otherwise if the radiologist feels these are benign hemangiomas or other lesions, could consider cholecystectomy at some point but he would need anesthesia evaluation to see if they feel he would benefit cardiac clearance given his comorbidities. He did not appear to need any emergent surgeries. He is definitely nontoxic, soft abdomen and nontender. The patient and family agreed to the planned. Await further liver work up at this time. Dr. Fernando Santiago will re-evaluate tomorrow.
--- NOTE | 2019-02-10 09:54 | OP ---
SURGERY DATE/TIME: 02/08/2019 1334 PREOPERATIVE DIAGNOSIS: Liver metastases. POSTOPERATIVE DIAGNOSES: 1) Liver metastases. 2) Large gastroesophageal junction mass almost definitely cancer. PROCEDURES: 1) EGD with biopsy of gastroesophageal junction mass. 2) Colonoscopy to cecum. SURGEON: Fernando Santiago M.D. ANESTHESIA: MAC. SPECIMEN: Biopsy of the gastroesophageal junction mass. ESTIMATED BLOOD LOSS: Minimal. COMPLICATIONS: None. FINDINGS: Large circumferential and bulky gastroesophageal junction mass that is not obstructing and diverticulosis. PATIENT PRESENTATION: This patient presents with progressive fatigue, weight loss and poor appetite. CT scan shows multiple liver lesions concerning for diffuse hepatic metastatic disease. After discussing risks, benefits of EGD and colonoscopy the patient wished to proceed. DESCRIPTION OF PROCEDURE: The patient was brought to the endoscopy suite and placed in left lateral decubitus position. Gastroscope was inserted in the mouth after induction of MAC anesthesia. The esophagus was traversed. In the distal esophagus there was very irregular mucosa circumferentially from the bottom 5 to 6 cm of the esophagus that extended into a gastroesophageal junction mass. The scope was inserted into the stomach and retroflexed. There was a fungating mass circumferentially at the gastroesophageal junction. The scope was straightened. The stomach was traversed. The pylorus traversed. The duodenum appeared normal. Scope withdrawn back into the stomach. Retroflexion performed again and the biopsy performed. Cold biopsies of the mass with multiple biopsies taken of a portion that was fungating into the stomach. The scope was straightened and the scope removed back into the esophagus and biopsies performed of the esophageal portion of the mass as well. The mass did not appear to be obstructing although it is large and circumferential. It was very friable but biopsies did appear to stop bleeding after a little bit of time. The stomach was desufflated. The scope removed. Attention then was turned to colonoscopy. The colonoscope was gently advanced to the rectum. The scope was gently and slowly advanced to the cecum without any difficulty. The ileocecal valve and appendiceal orifice were clearly identified. The bowel prep was adequate. There was some liquid stool but an adequate view could be obtained. The scope was slowly withdrawn. The colon was completely normal except for diverticulosis. The rectum desufflated. The scope removed. The patient was recovered and taken to PACU in stable condition. 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 There is no possible curative therapy for this. I would recommend palliative treatment of the patient's symptoms. However if aggressive therapy was desired by patient and his family he could be referred to oncology for possible chemotherapy. We would be happy to place a port if they were to decide to do that.
== END 2019-02-09 14:21 | disposition hospice, home (50) | DRG 445 ==
LOC: MED SURG 11:40 → OBSVTOIN 02-07 12:00
PROVIDERS: ADMIT General Practice; ATTEND General Practice
PROC: 0DD68ZX Extraction of Stomach, Via Natural or Artificial Opening Endoscopic, Diagnostic (ICD-10-PCS; principal; 2019-02-08)
PROC: 0DJD8ZZ Inspection of Lower Intestinal Tract, Via Natural or Artificial Opening Endoscopic (ICD-10-PCS; 2019-02-08)
DX: K81.9 Cholecystitis, unspecified (principal); C16.9 Malignant neoplasm of stomach, unspecified; C78.7 Secondary malignant neoplasm of liver and intrahepatic bile duct; I50.42 Chronic combined systolic (congestive) and diastolic (congestive) heart failure; I10 Essential (primary) hypertension; I48.0 Paroxysmal atrial fibrillation; K57.30 Diverticulosis of large intestine without perforation or abscess without bleeding; E78.5 Hyperlipidemia, unspecified; N40.1 Benign prostatic hyperplasia with lower urinary tract symptoms; E78.00 Pure hypercholesterolemia, unspecified; E03.9 Hypothyroidism, unspecified; L89.152 Pressure ulcer of sacral region, stage 2; W19.XXXA Unspecified fall, initial encounter; Y92.230 Patient room in hospital as the place of occurrence of the external cause; Z79.899 Other long term (current) drug therapy
CPT/HCPCS: 36415; 43239; 45378; 71046; 71250; 74176; 74177; 76705; 80053; 81001; 82107; 83880; 84484; 85027; 85610; 87040; 93005; 93268; 93306; 94760; G0378; 88305; J0696; J1885; J2370; J2405; J2704; A9270-GY